=== PATIENT | male | born 1955 | race Two or more races ===

== ENCOUNTER 2020-06-01 15:33 | Outpatient (CLI) | payer OTHER | END 2020-06-01 15:41 | disposition home or self-care (01) | LOC: LAB 15:33 | DX: N20.0 Calculus of kidney (principal) ==

== ENCOUNTER 2020-06-04 11:50 | Outpatient (CLI) | payer OTHER | END 2020-06-04 15:06 | disposition HB | LOC: TOM 11:50 → RAD 11:50 → TOM 15:06 | PROVIDERS: ATTEND Surgery | DX: K76.0 Fatty (change of) liver, not elsewhere classified (principal); K57.90 Diverticulosis of intestine, part unspecified, without perforation or abscess without bleeding; R93.5 Abnormal findings on diagnostic imaging of other abdominal regions, including retroperitoneum; R19.4 Change in bowel habit; C18.7 Malignant neoplasm of sigmoid colon ==

== ENCOUNTER 2020-06-28 07:30 | Inpatient (IN) | payer OTHER ==
[~2020-06-28] VITALS: Ht 177.8 cm; Wt 116.1 kg
[2020-06-29] MEDS ORDERED: LOSARTAN POTASS50 MG PO (15:38)
[2020-06-29] MEDS ORDERED: HYDRALAZINE HCL10 MG PO (15:38)
[2020-06-29] MEDS ORDERED: ZYTIGA500 MG PO (15:39)
[2020-06-29] MEDS ORDERED: TRANDATE300 MG PO (15:39)
[2020-06-29] MEDS ORDERED: CARDURA XL8 MG PO (15:39)
[2020-06-29] MEDS ORDERED: [UNRECOGNIZED DRUG - OTHER] PO (15:39)
[2020-06-29] MEDS ORDERED: MAXIMUM D3325 MCG PO (15:40)
[2020-06-29] MEDS ORDERED: MILLIPRED5 MG PO (15:40)
[2020-06-29] MEDS ORDERED: NIFEDIPINE20 MG PO (16:15)
[2020-07-05] MEDS ORDERED: INTESTINEX680 M1 PO (08:54)
[2020-07-05] MEDS ORDERED: OXYC1TAB9 PO (08:54)
[2020-07-05] MEDS ORDERED: HYOSCYAMINE0.125 M1 SL (08:54)
[2020-07-05] MEDS ORDERED: PROTONIX40 MG PO (08:55)
== END 2020-07-05 14:24 | disposition home or self-care (01) | DRG 331 ==
LOC: SURH 06-29 10:45 → O/R 07-02 09:33 → SURH 07-02 10:45 → SURG 07-02 15:37
PROVIDERS: ADMIT Surgery; ATTEND Surgery
PROC: 07BC4ZX Excision of Pelvis Lymphatic, Percutaneous Endoscopic Approach, Diagnostic (ICD-10-PCS; 2020-07-02)
PROC: 0DTP4ZZ Resection of Rectum, Percutaneous Endoscopic Approach (ICD-10-PCS; 2020-07-02)
PROC: 0DBN4ZZ Excision of Sigmoid Colon, Percutaneous Endoscopic Approach (ICD-10-PCS; principal; 2020-07-02 14:00)
DX: C19 Malignant neoplasm of rectosigmoid junction (principal); I12.9 Hypertensive chronic kidney disease with stage 1 through stage 4 chronic kidney disease, or unspecified chronic kidney disease; N18.9 Chronic kidney disease, unspecified

== ENCOUNTER 2020-08-30 06:00 | Day surgery (SDC) | payer OTHER ==
[~2020-08-30 06:00] MED LIST: CARDURA XL8 MG PO; HYDRALAZINE HCL10 MG PO; HYOSCYAMINE0.125 M1 SL; INTESTINEX680 M1 PO; LOSARTAN POTASS50 MG PO; MAXIMUM D3325 MCG PO; MILLIPRED5 MG PO; NIFEDIPINE20 MG PO; OXYC1TAB9 PO; PROTONIX40 MG PO; TRANDATE300 MG PO; ZYTIGA500 MG PO; [UNRECOGNIZED DRUG - OTHER] PO
[2020-08-30] MEDS ORDERED: ULTRACET PO (10:38)
== END 2020-08-30 19:09 | disposition home or self-care (01) ==
LOC: CIR.AMB 06:00
PROVIDERS: ATTEND Surgery
DX: C18.7 Malignant neoplasm of sigmoid colon (principal); Z20.822 Contact with and (suspected) exposure to COVID-19
CPT/HCPCS: 36561; C1751

== ENCOUNTER 2020-12-27 06:12 | Day surgery (SDC) | payer OTHER ==
[~2020-12-27 06:12] MED LIST changes: +ULTRACET PO
[2020-12-27] MEDS ORDERED: ULTRACET PO (08:21)
== END 2020-12-27 11:15 | disposition home or self-care (01) ==
LOC: CIR.AMB 06:12
PROVIDERS: ATTEND Surgery
DX: T82.514A Breakdown (mechanical) of infusion catheter, initial encounter (principal); C18.7 Malignant neoplasm of sigmoid colon; Z20.822 Contact with and (suspected) exposure to COVID-19